=== PATIENT | male | born 1955 ===

== ENCOUNTER → 2018-10-12 15:23 | Outpatient (REF) | payer OTHER, SELFPAY ==
[2018-10-12 16:52] LABS: Erythrocyte Sedimentation Rate 1 MM/HR (0-15)
== END ==
LOC: LAB 15:23
PROVIDERS: Visit Provider Specialist
DX: K57.92 Diverticulitis of intestine, part unspecified, without perforation or abscess without bleeding (principal)
CPT/HCPCS: 85651